=== PATIENT | female | born 1950 | race Caucasian/White ===

== ENCOUNTER → 2018-02-13 | Outpatient (CLI) | payer BC ==
[~2018-02-13] MED LIST: CELE-1 PO; CYCL10TA29 PO; KET10 PO; PER PO; TRA50 PO
--- NOTE | 2018-02-13 11:03 | RADIOLOGY IMAGING REPORT ---
[place] [facility] [place] Becki [place] : 1950 MR: [id number] V: [id number] EXAM DATE: ORDERING PHYSICIAN: MIGUEL ÁNGEL MARCUS TECHNOLOGIST[place] [facility] [place]i [place] : 1950 Visit/Account:[id number] Date of Sevice: 02/13/2018 EXAMINATION: CT Lumbar spine without intravenous contrast HISTORY: Trauma. Low back pain. COMPARISON: Lumbar spine radiographs dated 09/28/2012. TECHNIQUE: Axial images were obtained through the lumbar spine without IV contrast administration. C oronal and sagittal reformatted images were obtained from the axial source data. One of the following dose optimization techniques was utilized in the performance of this exam: Autom ated exposure control; adjustment of the mA and/or kV according to the patient's size; or use of an i terative reconstruction technique. Specific details can be referenced in the facility's radiology C T exam operational policy. FINDINGS: Alignment: Mild convex rightward curvature centered at L2. Minimal retrolisthesis of L1 over L2 and L 3 over L4. 4 mm of retrolisthesis of L2 over L3. 6 mm of anterior listhesis of L4 over L5. Vertebral bodies: Normal vertebral body height. No evidence of acute fracture. No aggressive osseou s lesions. Degenerative endplate changes at L2-L3 and L3-L4. Posterior elements: Multilevel facet hypertrophy. Hardware: None. Disc Spaces: Multilevel degenerative disc disease. Soft tissues: Negative. Visualized retroperitoneal / abdominal structures: Extensive distal colonic diverticulosis. Moderate aortoiliac calcification with no aneurysm. IMPRESSION: 1. No acute osseous abnormality of the lumbar spine. 2. Multilevel degenerative disc disease and facet hypertrophy with multiple alignment abnormalities. Report Dictated By: Christian Noland MD at 02/13/2018 10:48 AM Report E-Signed By: Christian Noland MD at 02/13/2018 10:53 AM WSN:[id number]
== END ==
LOC: CT 10:14
PROVIDERS: ATTEND Physician Assistant
DX: M51.36 Other intervertebral disc degeneration, lumbar region (principal)
CPT/HCPCS: 72131